=== PATIENT | female | born 1955 | race Caucasian/White ===

== ENCOUNTER 2020-04-30 18:04 | Inpatient (IN) | payer OTHER ==
[~2020-04-30] VITALS: Ht 162.6 cm; Wt 153.1 kg
[~2020-04-30 18:04] MED LIST: ALBU3IS INH; GABA300 PO; Hydrocodone-Ap1 EA23 PO; LISI20 PO; MONDOXYNE NL100 MG PO; MONT10T PO; Tenex1 MG PO
[2020-04-30 18:21] LABS: BASOPHILS ABSOLUTE AUTO 0.06 K/mm3 (0.00-0.23); BASOPHILS PERCENT AUTO 1 % (0-2); EOSINOPHILS ABSOLUTE AUTO 0.12 K/mm3 (0.00-0.68); EOSINOPHILS PERCENT AUTO 1 % (0-6); Hematocrit 40.5 % (33.0-51.0); Hemoglobin 10.3 g/dL (11.5-16.0); IMMATURE GRAN ABSOLUTE AUTO 0.21 K/mm3 (0.00-0.10); IMMATURE GRAN PERCENT AUTO 2 % (0-1); LYMPHOCYTES ABSOLUTE AUTO 1.72 K/mm3 (0.84-5.20); LYMPHOCYTES PERCENT AUTO 14 % (21-46); MONOCYTES ABSOLUTE AUTO 0.88 K/mm3 (0.16-1.47); MONOCYTES PERCENT AUTO 7 % (4-13); Mean Corpuscular HGB 24.7 pg (26.0-34.0); Mean Corpuscular HGB Conc 25.4 g/dL (31.5-36.5); Mean Corpuscular Volume 97 fL (80-100); Mean Platelet Volume 9.5 fL (9.1-12.4); NEUTROPHILS PERCENT AUTO 76 % (41-73); NRBC ABSOLUTE 0.44 K/mm3 (0.00-0.02); NRBC Auto 3.5 /100 WBC (0.0-0.2); Platelet Count 312 K/mm3 (150-400); RDW Coefficient Variation 19.9 % (11.7-14.2); Red Blood Cell Count 4.17 M/mm3 (3.80-5.20); White Blood Cell Count 12.59 K/mm3 (4.00-11.30)
[2020-04-30 18:27] LABS: PO2 Arterial 66.7 mmHg (80-100); pH Blood Arterial 7.24 (7.35-7.45)
[2020-04-30 18:46] LABS: Troponin I <0.015 ng/mL (0.000-0.040)
[2020-04-30] MEDS ORDERED: CENTRUM SILVER1 EAC2 PO (18:51)
[2020-04-30] MEDS ORDERED: DULCOLAX5 MG PO (18:51)
[2020-04-30] MEDS ORDERED: METO25ER PO (18:52)
[2020-04-30] MEDS ORDERED: DOXY100 PO (18:52)
[2020-04-30] MEDS ORDERED: CYCLOBENZAPRINE5 MG PO (18:52)
[2020-04-30 19:22] LABS: Alanine Aminotransfer (ALT/SGP 26 U/L (12-78); Albumin, Blood 3.1 g/dL (3.4-5.0); Albumin/Globulin Ratio 0.6 (0.8-1.8); Alk Phos 97 U/L (50-136); Anion Gap 3 mmol/L (6-16); Aspartate Aminotrans (AST/SGOT 17 U/L (12-37); Bilirubin, Total 0.4 mg/dL (0.1-1.0); Blood Urea Nitrogen 27 mg/dL (8-24); Bun/Creatinine Ratio 28.2 (12.0-20.0); CO2, Blood 36 mmol/L (21-32); Calcium, Blood 9.3 mg/dL (8.5-10.1); Chloride, Blood 101 mmol/L (98-108); Creatinine, Blood 0.96 mg/dL (0.40-1.00); Glomerular Filtration Rate >60 (60-); Glucose, Blood 137 mg/dL (70-99); Potassium, Blood 5.3 mmol/L (3.5-5.5); Sodium, Blood 140 mmol/L (136-145); Total Protein, Blood 8.1 g/dL (6.4-8.2)
[2020-04-30] MEDS ORDERED: Lovastatin10 MG PO (19:38)
[2020-04-30] MEDS ORDERED: Flovent 220 Ora12 GM INH (19:41)
[2020-04-30] MEDS ORDERED: [UNRECOGNIZED DRUG - OTHER] VAG (19:47)
[2020-04-30] MEDS ORDERED: ESTROGENS CONJUGATED VAG (19:47)
[2020-04-30] MEDS ORDERED: IPRAT-ALBUT 0.5-3 ML NEB (19:49)
[2020-04-30] MEDS ORDERED: CEPH500 PO (19:50)
[2020-04-30] MEDS ORDERED: LEVSOD112 PO (19:51)
[2020-04-30] MEDS ORDERED: GLIP5ER PO (19:52)
[2020-04-30 20:18] LABS: PO2 Arterial 61.3 mmHg (80-100)
[2020-04-30 20:20] LABS: PCO2 Arterial 92.6 mmHg (35-45); pH Blood Arterial 7.27 (7.35-7.45)
[2020-04-30] MEDS ORDERED: NYAMYC15 G1 TOP (21:06)
[2020-04-30 21:32] LABS: PCO2 Arterial 98.8 mmHg (35-45); PO2 Arterial 124 mmHg (80-100); pH Blood Arterial 7.24 (7.35-7.45)
[2020-04-30 22:43] LABS: PO2 Arterial 67.2 mmHg (80-100)
[2020-04-30 22:44] LABS: PCO2 Arterial 95.1 mmHg (35-45)
[2020-04-30 22:46] LABS: pH Blood Arterial 7.27 (7.35-7.45)
--- NOTE | 2020-05-01 | NUR ---
PT ARRIVAL PT ARRIVED FROM ED ON BIPAP. PT UNRESPONSIVE TO VERBAL, RESPONDS MINIMALLY TO PAINFUL. PT MOVED TO HOSP BED AND DID NOT TOLERATE MOVE WELL, PT IMMEDIATELY SAT UP TO ASSIST IN O2 SATS. OLD LINEN LEFT UNDERNEATH PT LIFT SHEET AT THIS TIME TO ALLOW PT RESP TO RECOVER BEFORE MOVING PT. PER RT PT HAS HAD DECREASED MENTAL, PER REPORT FROM ED NURSE PT WAS A0X3 IN ED AND ABLE TO ANSWER QUESTIONS. PT UNABLE TO ANSWER ANY QUESTIONS AT THIS TIME. ONLY OPENS EYES BREIFLY FOR PAINFUL STIMULI, UNABLE TO MAINTAIN CONSCIOUSNESS. WILL OBTAIN NEW ABG PER HOSPITALIST. PT REMAINS ON BIPAP.
[2020-05-01 00:41] LABS: PCO2 Arterial 87.5 mmHg (35-45); PO2 Arterial 72.2 mmHg (80-100)
--- NOTE | 2020-05-01 03:00 | NUR ---
PT UPDATE RN TO ROOM AFTER WOOL WASHER FEEDER REPORTED PT MOVING L ARM TOWARDS BIPAP MASK. PT OPENS EYES TO VERBAL AHND TRACKS THIS RN. PT ABLE TO SATE SHE IS AT HOSPITAL AND IS COLD. BLANKETS PULLED UP AND PT REQUESTED PILLOW. PT UPDATED THAT MASK WAS IMPROVING PT STATUS AND NEEDS TO REMAIN IN PLACE. PT REPORTED UNDERSTANDING AND WENT BACK TO SLEEP.
[2020-05-01 04:40] LABS: Alanine Aminotransfer (ALT/SGP 21 U/L (12-78); Albumin, Blood 2.9 g/dL (3.4-5.0); Albumin/Globulin Ratio 0.6 (0.8-1.8); Alk Phos 89 U/L (50-136); Anion Gap 1 mmol/L (6-16); Aspartate Aminotrans (AST/SGOT 22 U/L (12-37); Bilirubin, Total 0.4 mg/dL (0.1-1.0); Blood Urea Nitrogen 25 mg/dL (8-24); Bun/Creatinine Ratio 26.8 (12.0-20.0); CO2, Blood 39 mmol/L (21-32); Chloride, Blood 99 mmol/L (98-108); Creatinine, Blood 0.93 mg/dL (0.40-1.00); Globulin, Blood 4.8 g/dL (2.2-4.0); Glomerular Filtration Rate >60 (60-); Glucose, Blood 86 mg/dL (70-99); Potassium, Blood 5.1 mmol/L (3.5-5.5); Sodium, Blood 139 mmol/L (136-145); Total Protein, Blood 7.7 g/dL (6.4-8.2); Troponin I <0.015 ng/mL (0.000-0.040)
[2020-05-01 05:23] LABS: PO2 Arterial 70.8 mmHg (80-100); pH Blood Arterial 7.33 (7.35-7.45)
[2020-05-01 05:24] LABS: PCO2 Arterial 82.8 mmHg (35-45)
--- NOTE | 2020-05-01 05:52 | NUR ---
SHIFT SUMMARY PT SITTING UPRIGHT IN BED W/ BIPAP IN PLACE RESTING COMFORTABLY. PT HAS HAD SIGNIFICANT IMPROVEMENTS IN MENTAL STATUS DURING NIGHT. PT REMAINED ON BIPAP T/O NIGHT WITH CO2 LEVELS SLOWLY IMPROVING. PT CAN NOW AROUSE TO LOUYD VERBAL W/ SLIGHTLY SHAKE OF SHOULDER. PT ABLE TO OPEN EYES AND TRACK STAFF. PT EVEN SPOKE IN SHORT SENTANCES THROUGH MASK. BIPAP SETTING 22/10 W/ Fi02 OR 45%. SATS >92%. PT DENIED ANY PAIN. DENIED OTHER NEEDS. PT STILL NOT ABLE TO REMAIN AWAKE LONG ENOUGH TO SAFELY TAKE PO MEDS. CALL [facility] IS IN [facility].
--- NOTE | 2020-05-01 08:43 | NUR ---
PT IS NPO,PT DOES WAKE TO VERBAL STIMULI BUT DOES REMAIN AWAKE FOR LONG, WILL HOLD ORAL MEDICATIONS R/T NPO STATUS AND AMS
--- NOTE | 2020-05-01 10:07 | NUR ---
DR LÓPEZ CALLED AND UPDATED THAT PT'S PUPILS ARE NOT EQUAL, BUT ARE REACTIVE, AND THAT PT ALSO HAS NOTD GARBLED SPEECH THAT PER SPOUSE THIS IS NOT HER NORMAL BASELINE.
--- NOTE | 2020-05-01 10:40 | NUR ---
PT IS NOW OFF OF BIPAP, PT ANSWERING QUESTIONS, PUPILS ARE NEARLY EQUAL, DR DREW AT BEDSIDE. Q6 CHEMBG WAS PERFORMED NOTED TO BE 66, OJ WAS GIVEN PT OTLERATED WELL. WILL REASSESS IF PT IS ABLE TO SWALLOW HER AM MEDICATIONS
--- NOTE | 2020-05-01 15:26 | NUR ---
Initial palliative care consult: Sandra is a 64 year old with a history of morbid obesity, chronic hypoxemic respiratory failure, restrictive lung disease, HTN, hypothyroidism, CVA, DM. She was admitted yesterday evening with AMS changes and SOB. Attempted to visit with Sandra in her room today. She is sleeping soundly with the BIPAP in place. She did not awaken to voice or touch. Did not attempt a sternal rub to wake her as nursing reports she has been awake off and on during the shift and she converses with nursing when she is awake. Spoke with nursing and rec'd an update. Phone call placed to Carlos, pt's . Carlos states that Sandra lives at home with him. At baseline she is bed and wheelchair bound. They have wc, shower chair, elly lift in their home. Sandra has caregivers 7 days a week for 4 hours in the mornings and 3 hours in the evenings to assist with her care. Carlos reports that he feels that they have all the resources they need at home to be able to care for Sandra when she is ready for discharge. Carlos states that Sandra sleeps in a chair and has the TV on at night to help her sleep. He reports that he does some cooking and manages her medications. She is able to feed herself with some set up assistance. She is dependent on all other ADLs. She is unable to bear any weight on her R leg and uses the elly lift for transfers. Carlos reports that about two weeks ago he noticed "Warts on her legs started popping and leaking water." Since then she has become more lethargic and SOB. Updated Carlos on her current condition. He reports that baseline she is becoming more and more forgetful. Discussed that this mortgage underwriter was able to obtain a copy of pt's POLST from [facility]. Discussed the POLST with DNR, limited interventions and Carlos states that this is correct. They decided this course of treatment several years ago (POLST dated 2016) and that Sandra has never expressed a desire to change it. Carlos inquired about visiting hours. Explained current visitor restrictions and times. Carlos plans to come visit Sandra tomorrow morning. Spoke with Dr. Chi and rec'd a verbal telephone order to change pt's code status to DNR. Updated nursing re: change in code status order. PC will continue to follow for symptom management and advanced care planning as needed. Hand carried a copy of pt's POLST form from 2017 to medical records for input into the EMR system. AD is already in the EMR. Copies of AD and POLST placed in pt's chart cubby.
--- NOTE | 2020-05-01 16:24 | NUR ---
SHIFT NOTE CALL PLACED TO DR LÓPEZ FOR SPEECH THERAPY EVALUATION PT HAS NOT BEEN ABLE TO STAY AWAKE TO FOLLOW COMMANDS FOR BESIDE SWALLOW STUDY, PT'S RECENT GLUCOSE READING WERE REVIEWED WITH DR LÓPEZ AND TELEPHONE ORDER TO ADMINISTER ORANGE JUICE PO NEEDED TO MAINTAIN BLOOD SUGAR. PT AWAKENS INTERMITTENTLY TO PAINFUL OR VERBAL STIMULI. PT HAS BEEN BETWEEN O2 AND BIPAP. CHEMBG HAVE BEEN LOW T/O THE DAY WHICH WERE ADDRESSED WITH MD. THE BLISTERING PATTERN NOTED TO POSTERIOR RT KNEE WAS ALSO ADDRESSED WITH MD THIS AM. VSS T/O THE SHIFT. PT AWAKENS EASILY BUT DOES NOT STAY AWAKE LONG, OR ABLE TO FOLLOW COMMANDS FOR A LONG PERIOD OF TIME. RT SIDED WEAKNESS NOTED, WHICH S/O STS IS HER BASELINE FROM CVA IN 2011, GOOD STRENGTH TO LT ARM AND LEG. PUPILS ARE NOT EQUAL, MD IS ALSO AWARE OF THIS FINDING, S/O STS THAT PUPILS ARE NORMALLY EQUAL.
--- NOTE | 2020-05-01 16:27 | NUR ---
Echocardiogram completed.
[2020-05-02 04:16] LABS: BASOPHILS ABSOLUTE AUTO 0.05 K/mm3 (0.00-0.23); BASOPHILS PERCENT AUTO 1 % (0-2); EOSINOPHILS ABSOLUTE AUTO 0.26 K/mm3 (0.00-0.68); EOSINOPHILS PERCENT AUTO 3 % (0-6); Hematocrit 33.5 % (33.0-51.0); Hemoglobin 8.9 g/dL (11.5-16.0); IMMATURE GRAN ABSOLUTE AUTO 0.07 K/mm3 (0.00-0.10); IMMATURE GRAN PERCENT AUTO 1 % (0-1); LYMPHOCYTES ABSOLUTE AUTO 1.56 K/mm3 (0.84-5.20); LYMPHOCYTES PERCENT AUTO 16 % (21-46); MONOCYTES ABSOLUTE AUTO 0.75 K/mm3 (0.16-1.47); MONOCYTES PERCENT AUTO 8 % (4-13); Mean Corpuscular HGB 24.9 pg (26.0-34.0); Mean Corpuscular HGB Conc 26.6 g/dL (31.5-36.5); Mean Corpuscular Volume 94 fL (80-100); Mean Platelet Volume 9.5 fL (9.1-12.4); NEUTROPHILS ABSOLUTE AUTO 7.13 K/mm3 (1.96-9.15); NEUTROPHILS PERCENT AUTO 73 % (41-73); NRBC ABSOLUTE 0.08 K/mm3 (0.00-0.02); NRBC Auto 0.8 /100 WBC (0.0-0.2); Platelet Count 249 K/mm3 (150-400); RDW Coefficient Variation 19.7 % (11.7-14.2); RDW Standard Deviation 66.8 fL (35.1-46.3); Red Blood Cell Count 3.57 M/mm3 (3.80-5.20); White Blood Cell Count 9.82 K/mm3 (4.00-11.30)
[2020-05-02 04:33] LABS: Anion Gap 0 mmol/L (6-16); Blood Urea Nitrogen 23 mg/dL (8-24); Bun/Creatinine Ratio 24.4 (12.0-20.0); CO2, Blood 45 mmol/L (21-32); Calcium, Blood 8.7 mg/dL (8.5-10.1); Chloride, Blood 94 mmol/L (98-108); Creatinine, Blood 0.94 mg/dL (0.40-1.00); Glomerular Filtration Rate >60 (60-); Glucose, Blood 88 mg/dL (70-99); Potassium, Blood 4.4 mmol/L (3.5-5.5); Sodium, Blood 139 mmol/L (136-145)
[2020-05-02 05:42] LABS: PO2 Arterial 91.9 mmHg (80-100); pH Blood Arterial 7.41 (7.35-7.45)
[2020-05-02 05:43] LABS: PCO2 Arterial 77.4 mmHg (35-45)
--- NOTE | 2020-05-02 05:43 | NUR ---
SHIFT SUMMARY PT SLEEPING IN ROOM COMFORATBLY AT THIS TIME. NO ACUTE CHANGES IN STATUS T/O NIGHT PT WAS ABLE TO ATTEMPT BEDSIDE SWALLOW EVAL DUE TO DRASTIC INCREASE IN MENTATION AND ALERTNESS AT START OF SHIFT. PT TOLERATED ALL PO INTAKE WELL AND HAD NO DIFFICULTIES SWALLOWING. PT MADE ADA DIET AT THIS TIME AND CBG CHANGED TO ACHS. PT WORE BIPAP T/O NIGHT TOLERATED WELL. SATS >90% T/O NIGHT DENIED ANY CP OR SOB. BAILON IN PLACE DRAINING ORANGE TINT URINE. DENIED OTHER NEEDS. CALL LIGHT IN REACH.
--- NOTE | 2020-05-02 08:46 | NUR ---
Alerted by PCT that IV dressing left hand was not intact. Old dressing removed and IV site assessed, found to be WNL. Site was cleansed with chlorihexidine, and new sterile dressing was placed. Pt denies any discomfort when IV was flushed with 10 NS.
--- NOTE | 2020-05-02 16:13 | NUR ---
SHIFT NOTE PT HAS BEEN A/O X3 T/O THE DAY, LAUGHS AND JOKES WITH STAFF. PT HAS BEEN OFF AND ON BIPAP T/O THE DAY. TOLERATES HIGH FLOW O2 WELL. PT TOLERATES PO MEDS W/O DIFF. PT HAS ATE WELL T/O THE DAY WITH GOOD APPETITE. NO CHANGES FROM THE PREVIOUS SHIFT.
[2020-05-03 04:43] LABS: Anion Gap 2 mmol/L (6-16); Blood Urea Nitrogen 17 mg/dL (8-24); Bun/Creatinine Ratio 20.3 (12.0-20.0); CO2, Blood 41 mmol/L (21-32); Calcium, Blood 8.8 mg/dL (8.5-10.1); Chloride, Blood 91 mmol/L (98-108); Creatinine, Blood 0.84 mg/dL (0.40-1.00); Glomerular Filtration Rate >60 (60-); Glucose, Blood 100 mg/dL (70-99); Potassium, Blood 4.2 mmol/L (3.5-5.5); Sodium, Blood 134 mmol/L (136-145)
--- NOTE | 2020-05-03 05:28 | NUR ---
SHIFT SUMMARY PT SLEEPING IN ROOM COMFORTABLY AT THIS TIME. NO ACUTE CHANGES IN STATUS T.O NIGHT. PT CONTINUES TO IMPROVE IN STATUS OVER LAST 3 NIGHTS WITH THIS RN IN CARE. PT AOX4 AND ABLE TO EAT MEALS W/O ASSIST. PT WORE BIPAP MOST OF NIGHT AND TOLERATED WELL. PT WAS ABLE TO TOLERATE FULL BED BATH AND LINEN CHANGE W/O DESATURATING BELOW 90% ON 5L NC. PT ATTEMPTED BM, N SUCCESS PT REPORTS CANNOT GO ON BEDPAN. PT HAS NOT BEEN OUT OF BED YET AND REPORTS BEING ABLE TO SUPPOR WEIGHT ON R LEG VERY BREIFLY. PT AGREED TO WAIT UNTIL WORKING W/ PT TO TRY STANDING. CATH CARE PROVIDED, SOME BLOOD NOTED, PT REPOTS CATH GOT "SNAGGED" ONCE OR TWICE. BAILON PATENT AND DRAINING. DENIED OTHER NEEDS. CALL LIGHT IN REACH.
--- NOTE | 2020-05-04 02:02 | NUR ---
ASSUNED CARE AT 1900. COMPLETE BED BATH AND SKIN CHECK. ENC TO TURN COUGH AND DEEP BREATHE, UNABLE TO ASSIST IN TURNING AT ALL. HOB SEMI FOWLERS FOR COMFORTABLE BREATHING. NC AT 4L . WHEN PLACAED ON BIPAP 40 % FIO2 . DENIES PAIN AND VERY RESISTANT TO TURN FROM SIDE TO SIDE . " I HAVE BEEN SLEEPING ON MY BACK FOR 14 YRS ". NO SKIN BREAK DOWN EXCEPT RT OF NECK . PLACED CALIZIME CREAM AND AND GAUZE FOR DRYING. NO DESIRE FOR HS SNACK. ENC SIPS OF FLUIDS, RT EXTREMITIES FLACCID PER HX CVA
[2020-05-04 04:29] LABS: Anion Gap 3 mmol/L (6-16); Blood Urea Nitrogen 20 mg/dL (8-24); Bun/Creatinine Ratio 20.3 (12.0-20.0); CO2, Blood 40 mmol/L (21-32); Calcium, Blood 9.2 mg/dL (8.5-10.1); Chloride, Blood 93 mmol/L (98-108); Creatinine, Blood 0.98 mg/dL (0.40-1.00); Free Thyroxine 1.09 ng/dL (0.70-1.60); Glomerular Filtration Rate >60 (60-); Glucose, Blood 95 mg/dL (70-99); Sodium, Blood 136 mmol/L (136-145)
--- NOTE | 2020-05-04 05:12 | NUR ---
WORE BIPAP FOR 9 HRS TONIGHT . 40 % FIO2. ATTEMPT TO WEAN HIGH FLOW O2 TO 6L . WNL SAT WHEN AWAKE OR ASLEEP. ENC TO GET BACK ON BIPAP WHEN FALLS OFF TO SLEEP. AND AGREES. BP LOW 67 MAP , USED LT ANKLE. LEFT BAILON IN , 600 ML URINE TONIGHT.REFUSED/TURN AND A FEW TIMES STAFF INSISTED ON REPOSITIONING.
--- NOTE | 2020-05-04 18:00 | NUR ---
SUMMARY NO ACUTE CHANGES NOTED THROUGH THE DAY. PT IS A&OX4, VSS, BP WAS LOW THIS AM BUT STARTING TO RISE, PT REMAINED ASYMPTOMATIC, CPAP ENC WHILE SLEEPING, Q2 TURNS ENC WELL, BAILON CATH REMOVED THIS EVENING, ATTENDS PLACED PER PT'S WISHES, SHE STATES SHE IS INCONTINENT AT HOME. WCTM, CALL LIGHT IN REACH
--- NOTE | 2020-05-05 05:10 | NUR ---
SHIFT SUMMARY: PATIENT USED BIPAP WHILE SLEEPING, VSS, NO ACUTE ISSUES THIS SHIFT. BED LOW AND LOCKED, CALL LIGHT WITHIN REACH.
--- NOTE | 2020-05-05 09:44 | NUR ---
ASSUME CARE; PT ON BIPAP THIS AM SWITCHED TO NASAL CANNULA 6L OF O2, SATS ABOVE 95%, BP SYSTOLIC 120'S, HR 80'S, AFEBRILE. NO COMPLAINS THIS MORNING, PT WAS REPOSITIONED IN BED RIGHT SIDE PARALYSIS RIGHT ARM ELEVATED ON PILLOWS. DENIES ANY PAIN, ATE BREAKFAST AND TOOK MEDS WITH NO ISSUES. PT INCONTINENT OF URINE WAS FOUND SOAKING WET THIS MORNING PT WAS GIVEN A BED BATH. DR WILDER WENT AND SEE PT THIS MORNING PT FOR POSSIBLE DISCHARGE TODAY PLAN. WILL MONITOR
--- NOTE | 2020-05-05 16:59 | NUR ---
PT SUMMARY/TRANSFER OF CARE: PT TRANSFERRED TP RM [phone] REPORT GIVEN TO STEFANI CALHOUN. PT'S VITALS BEEN STABLE FOR THE SHIFT, NO OTHER ISSUES COMPLAINTS REPORTED. PT PLAN TO DISCHARGE TOMORROW HOME O2 EVAL PASSED. PT CONTINUES ON 5L OF O2 VIA NASAL CANNULA BIPAP PRN. PT HAD A LARGE BM TODAY. ACCOMPANIED AND TRANSFERRED VIA HOSPITAL BED.
--- NOTE | 2020-05-05 18:55 | NUR ---
PT WAS TRANSFERRED FROM PCU THIS SADA. SHE IS A/O X 4 AND WAS ORIENTED TO HER NEW ROOM AND NURSING STAFF. PT HAS NO COMPLAINTS AND IS ABLE TO MAKE HER NEEDS KNOWN. SHE HAS HER CALL LIGHT IN REACH. REPORT GIVEN TO ONCOMING NURSE.
--- NOTE | 2020-05-06 07:35 | NUR ---
SHIFT SUMMARY PT A/O X4, USING CALL LIGHT APPR. PT HAS BEEN REPOSITIONED FREQUENTLY DURING THE SHIFT. ATTENS IN PLACE FOR INCONTINENCE. WHILE AWAKE PT HAS BEEN USING O2 NC WITH HUMIDIFIER AT 5-6L. DURING THE NIGHT PT USED BIPAP. BIOX AT BEDSIDE. PT O2 DID TEND TO DROP WHILE ASLEEP; O2 TURNED UP TO 8L WITH BIPAP TO MAINTAIN O2 SAT ABOVE 90-92% WHILE ASLEEP. PT RESTING AT THIS TIME.
--- NOTE | 2020-05-06 13:08 | NUR ---
Pt. is in bed and reports to be doing much better encouraged pt. and offered prayers
[2020-05-06] MEDS ORDERED: EUTHYROX125 MCG PO (15:30)
[2020-05-06] MEDS ORDERED: LISI5 PO (15:30)
[2020-05-06] MEDS ORDERED: TORSE20 PO (15:31)
--- NOTE | 2020-05-06 17:41 | NUR ---
PT DISCHARGED FROM THE UNIT. IV REMOVED. DISCHARGE INSTRUCTIONS REVIEWED. PT WILL HAVE FOLLOW UP WITH PULMONOLOGY TOMORROW TO EVALUATE HER FOR CPAP AT NIGHT. TRANSPORTATION ARRNGED FOR THIS. SHE WAS PICKED UP BY [facility] TO GO HOME. FOLLOW UP APT SCHEDULED WITH PRIMARY CARE PROVIDER.
--- NOTE | 2020-05-06 17:48 | NUR ---
Initial spiritual care note: Sandra smiled easily and welcomed prayer. She feels loved and supported bu her and reports a strong roslyn in a God that loves her. She is being discharged soon. Prayer for continued healing well received.
== END 2020-05-06 17:16 | disposition home or self-care (01) | DRG 291 ==
LOC: ER 18:04 → ERHOLD 20:20 → MEDS 20:20 → PCU 22:45 → MEDS 05-05 16:57 → ENPENDDIS 05-06 12:26 → MEDS 05-06 17:16
PROVIDERS: Emergency Medicine; Family Medicine; Hospitalist; Internal Medicine; ADMIT Internal Medicine
DX: I11.0 Hypertensive heart disease with heart failure (principal); I50.31 Acute diastolic (congestive) heart failure; J96.21 Acute and chronic respiratory failure with hypoxia; J96.22 Acute and chronic respiratory failure with hypercapnia; E66.2 Morbid (severe) obesity with alveolar hypoventilation; Z68.44 Body mass index [BMI] 60.0-69.9, adult; Z51.5 Encounter for palliative care; Z20.828 Contact with and (suspected) exposure to other viral communicable diseases; K59.00 Constipation, unspecified; Z86.73 Personal history of transient ischemic attack (TIA), and cerebral infarction without residual deficits; E03.9 Hypothyroidism, unspecified; I27.20 Pulmonary hypertension, unspecified; Z87.440 Personal history of urinary (tract) infections; Z66 Do not resuscitate; Z74.01 Bed confinement status; Z87.891 Personal history of nicotine dependence; Z99.3 Dependence on wheelchair; Z91.19 Patient's noncompliance with other medical treatment and regimen; E11.40 Type 2 diabetes mellitus with diabetic neuropathy, unspecified; J44.9 Chronic obstructive pulmonary disease, unspecified; Z99.81 Dependence on supplemental oxygen; G47.33 Obstructive sleep apnea (adult) (pediatric)
CPT/HCPCS: 36415; 36600; 51702; 71045; 80048; 80053; 82803; 82947; 83880; 84439; 84443; 84484; 85025; 93005; 93010; 93306; 94640; 94660; 94761; 94762; 96374-59; 99285-25; A9270-GY; J1650; J1940; U0002

== ENCOUNTER → 2021-06-28 | Outpatient (CLI) | payer OTHER ==
[~2021-06-28] MED LIST changes: +CENTRUM SILVER1 EAC2 PO; +CEPH500 PO; +CYCLOBENZAPRINE5 MG PO; +DOXY100 PO; +DULCOLAX5 MG PO; +ESTROGENS CONJUGATED VAG; +EUTHYROX125 MCG PO; +Flovent 220 Ora12 GM INH; +GLIP5ER PO; +IPRAT-ALBUT 0.5-3 ML NEB; +LEVSOD112 PO; +LISI5 PO; +Lovastatin10 MG PO; +METO25ER PO; +NYAMYC15 G1 TOP; +TORSE20 PO; +[UNRECOGNIZED DRUG - OTHER] VAG
[2021-06-28 09:48] LABS: Source, Urine Clean Catch
[2021-06-28 12:08] LABS: Appearance, Urine Hazy (Clear); Blood, Urine 4+ (Neg); Color, Urine Yellow (P-Yellow); Glucose Qualitative, Urine Neg (Neg); Ketones, Urine Neg (Neg); Leukocyte Esterase, Urine 3+ (Neg); Nitrite, Urine Pos (Neg); Protein, Urine 2+ (Neg); Urobilinogen, Urine 2+ (Normal)
[2021-06-28 13:35] LABS: Bilirubin, Urine 2+ (Neg)
[2021-06-28 13:36] LABS: Bacteria Many /hpf; Squamous Epithelial Cells Mod /hpf (Few)
== END | disposition home or self-care (01) ==
LOC: LAB SHORT 09:45
PROVIDERS: Student in an Organized Health Care Education/Training Program
DX: R31.0 Gross hematuria (principal)
CPT/HCPCS: 81001; 87077; 87086; 87186

== ENCOUNTER → 2021-11-24 | Outpatient (CLI) | payer OTHER | END | disposition home or self-care (01) | LOC: LAB SHORT 08:34 | DX: N39.0 Urinary tract infection, site not specified (principal) | CPT/HCPCS: 87077; 87086; 87186 ==

== ENCOUNTER 2022-07-10 16:45 | Inpatient (IN) | payer OTHER ==
[~2022-07-10] VITALS: Ht 170.2 cm; Wt 161.3 kg
[2022-07-10 17:10] LABS: Base Excess Venous -5.8 mmol/L; Bicarbonate Venous 19.3 mmol/L (24.0-30.0); PCO2 Venous 58.6 mmHg (38-42)
[2022-07-10 17:11] LABS: pH Blood Venous 7.19 (7.34-7.37)
[2022-07-10 17:13] LABS: BASOPHILS ABSOLUTE AUTO 0.09 K/mm3 (0.00-0.23); BASOPHILS PERCENT AUTO 1 % (0-2); EOSINOPHILS PERCENT AUTO 2 % (0-6); Hematocrit 37.8 % (33.0-51.0); Hemoglobin 11.4 g/dL (11.5-16.0); IMMATURE GRAN ABSOLUTE AUTO 0.46 K/mm3 (0.00-0.10); IMMATURE GRAN PERCENT AUTO 3 % (0-1); LYMPHOCYTES ABSOLUTE AUTO 2.86 K/mm3 (0.84-5.20); LYMPHOCYTES PERCENT AUTO 17 % (21-46); MONOCYTES ABSOLUTE AUTO 1.56 K/mm3 (0.16-1.47); MONOCYTES PERCENT AUTO 9 % (4-13); Mean Corpuscular HGB 31.6 pg (26.0-34.0); Mean Corpuscular HGB Conc 30.2 g/dL (31.5-36.5); Mean Corpuscular Volume 105 fL (80-100); Mean Platelet Volume 9.6 fL (9.1-12.4); NEUTROPHILS ABSOLUTE AUTO 11.25 K/mm3 (1.96-9.15); NEUTROPHILS PERCENT AUTO 68 % (41-73); NRBC ABSOLUTE 0.05 K/mm3 (0.00-0.02); NRBC Auto 0.3 /100 WBC (0.0-0.2); Platelet Count 341 K/mm3 (150-400); RDW Coefficient Variation 15.3 % (11.7-14.2); RDW Standard Deviation 60.1 fL (35.1-46.3); Red Blood Cell Count 3.61 M/mm3 (3.80-5.20); White Blood Cell Count 16.52 K/mm3 (4.00-11.30)
[2022-07-10 17:36] LABS: Albumin, Blood 2.7 g/dL (3.4-5.0); Albumin/Globulin Ratio 0.6 (0.8-1.8); Bilirubin, Total 0.4 mg/dL (0.1-1.0); Bun/Creatinine Ratio 15.4 (12.0-20.0); Calcium, Blood 8.9 mg/dL (8.5-10.1); Creatinine, Blood 1.3 mg/dL (0.40-1.00); Globulin, Blood 4.8 g/dL (2.2-4.0); Potassium, Blood 4.9 mmol/L (3.5-5.5); Thyroid Stimulating Hormone 4.84 uIU/mL (0.360-4.800); Total Protein, Blood 7.5 g/dL (6.4-8.2)
[2022-07-10 19:16] LABS: Source, Urine Straight Cath
[2022-07-10 19:19] LABS: Appearance, Urine Cloudy (Clear); Bilirubin, Urine Neg (Neg); Blood, Urine 4+ (Neg); Color, Urine Yellow (P-Yellow); Glucose Qualitative, Urine Neg (Neg); Ketones, Urine Neg (Neg); Leukocyte Esterase, Urine 3+ (Neg); Nitrite, Urine Pos (Neg); Protein, Urine 3+ (Neg); Specific Gravity, Urine 1.015 (1.003-1.022); Urobilinogen, Urine NORM (Normal)
[2022-07-10 19:29] LABS: White Blood Cells, Urine TNTC /hpf (0-5)
[2022-07-10 19:31] LABS: Bacteria Many /hpf; Squamous Epithelial Cells Mod /hpf (Few); Transitional Epithelial Cells Few /hpf (0-Rare)
[2022-07-10 19:59] LABS: Influenza A, PCR NEGATIVE (NEGATIVE); Influenza B, PCR NEGATIVE (NEGATIVE); Resp Syncytial Virus, PCR NEGATIVE (NEGATIVE); SARS-Cov-2 (COVID-19) PCR, MMC NEGATIVE (NEGATIVE)
[2022-07-10 20:28] LABS: Base Excess Venous 3.3 mmol/L; Bicarbonate Venous 26.8 mmol/L (24.0-30.0); PCO2 Venous 47.5 mmHg (38-42); pH Blood Venous 7.39 (7.34-7.37)
--- NOTE | 2022-07-10 22:00 | NUR ---
RECEIVED REPORT FROM EZIO CALHOUN IN ED. PT ARRIVED TO ROOM AROUND 2129. PT WAS NOT RESPONSIVE/FOLLOWING ANY COMMANDS. PUPILS WERE REACTIVE BUT VERY SLUGGISH. PT RESPONDS TO PAINFUL STIMULI WITH ABNORMAL EXTENSION TO BUE AND ABNORMAL FLEXION TO BLE. PT SEEMS TO BE SEIZING OR HAVING MYOCLONUS MOVEMENT. KEPPRA INFUSING, PRN ATIVAN GIVEN PRIOR TO ARRIVAL. OTHERWISE, VS CURRENTLY STABLE. IV FLUIDS INFUSING, BAILON INTACT AND DRAINING. WILL CONTINUE TO MONITOR.
--- NOTE | 2022-07-10 22:22 | NUR ---
SPOKE WITH MOMO CRANDALL [employer]UAL[employer] INSURANCE CLAIM ADJUSTER, REGARDING CONTINUED SEIZURE TYPE ACTIVITY. SEE NEW ORDERS FOR INCREASED DOSE OF KEPPRA AND ATIVAN. RT CALLED FOR CPAP TO BE PLACED.
[2022-07-11 04:10] LABS: Base Excess Venous 3.8 mmol/L; Bicarbonate Venous 27.5 mmol/L (24.0-30.0); PCO2 Venous 40.7 mmHg (38-42); pH Blood Venous 7.44 (7.34-7.37)
[2022-07-11 04:13] LABS: BASOPHILS ABSOLUTE AUTO 0.05 K/mm3 (0.00-0.23); BASOPHILS PERCENT AUTO 0 % (0-2); EOSINOPHILS PERCENT AUTO 0 % (0-6); Hematocrit 34.4 % (33.0-51.0); IMMATURE GRAN ABSOLUTE AUTO 0.15 K/mm3 (0.00-0.10); IMMATURE GRAN PERCENT AUTO 1 % (0-1); LYMPHOCYTES ABSOLUTE AUTO 1.09 K/mm3 (0.84-5.20); LYMPHOCYTES PERCENT AUTO 5 % (21-46); MONOCYTES ABSOLUTE AUTO 1.57 K/mm3 (0.16-1.47); MONOCYTES PERCENT AUTO 7 % (4-13); Mean Corpuscular HGB 31.7 pg (26.0-34.0); Mean Platelet Volume 9.4 fL (9.1-12.4); NEUTROPHILS ABSOLUTE AUTO 19.17 K/mm3 (1.96-9.15); NEUTROPHILS PERCENT AUTO 87 % (41-73); Platelet Count 297 K/mm3 (150-400); RDW Coefficient Variation 15.3 % (11.7-14.2); RDW Standard Deviation 55.5 fL (35.1-46.3); Red Blood Cell Count 3.47 M/mm3 (3.80-5.20); White Blood Cell Count 22.03 K/mm3 (4.00-11.30)
[2022-07-11 04:19] LABS: Mean Corpuscular Volume 99 fL (80-100)
[2022-07-11 04:33] LABS: Albumin, Blood 2.6 g/dL (3.4-5.0); Albumin/Globulin Ratio 0.6 (0.8-1.8); Bilirubin, Total 0.5 mg/dL (0.1-1.0); Bun/Creatinine Ratio 21.8 (12.0-20.0); Calcium, Blood 8.7 mg/dL (8.5-10.1); Creatinine, Blood 1.24 mg/dL (0.40-1.00); Globulin, Blood 4.7 g/dL (2.2-4.0); Magnesium, Blood 2.3 mg/dL (1.6-2.4); Potassium, Blood 4.6 mmol/L (3.5-5.5); Total Protein, Blood 7.3 g/dL (6.4-8.2)
--- NOTE | 2022-07-11 06:23 | NUR ---
Shift summary: Pt has not followed any commands overnight. She appears to be having myoclonus jerks more consistently despite PRN ativan being given. Her right foot is abnormally flexing and her left foot is flaccid. Her BUE are abnormally extending. Her pupils are very sluggish. She has been SR all night with HR 80-90s. BP has reamined stable and normotensive. Cap refill is >3 seconds and her fingertips are cool. All pulses are faint. Pt wore CPAP all night with O2 sats in the mid-90s. Clear/diminished lung soudns. Cash intact and draining jasiel urine with sediment. No BM overnight.
--- NOTE | 2022-07-11 08:46 | NUR ---
Assumed care at 0700, report received from nightshift RN. Pt in bed, on CPAP. Pt unresponsive to any stimuli, some reflexive jerking of R/arm and head noted. VS stable at time of report. Plan to connect with family and discuss further care. Continue to monitor.
--- NOTE | 2022-07-11 17:36 | NUR ---
CARE CONSULT WITH RN, REPORTS PT IS STILL HAVING JERING MOVEMENTS, TRIED ATIVAN AND FENTANYL TO HELP RELIEVE MOVEMENTS WITHOUT RESULTS. PT HR IS IRREGULAR AND SLIGHTLY ELEVTED AT 106, RESP RATE ON BIPAP IS 24-26 AND BP IS WNL. TC TO DAUGHTER, ROBIN ENRIQUE WITH QUESTIONS ABOUT HER MOMS CURRENT POLST AND WHAT CC VS LIMITED TREAMENT MEANS. ALSO DISCUSSED THAT THE PATIENT ROYER HAVE EEG AND HEAD CT DONE AND THEY CAN WAIT UNTIL THEN TO MAKE DECISIONS ON HOW TO PROCEED TOWARDS HOSPICE/CC IF APPROP. PALLIATIVE CARE WILL CONTINUE TO FOLLOW AND OFFER SUPPORT.
--- NOTE | 2022-07-11 19:02 | NUR ---
Shift summary. Pt in bed, unresponsive to any stimuli. On oxymizer at 10 L/min. Pt family in today, after speaking with Dr. Hill, they requested an EEG. EEG staff in around 1630, EEG completed. Family updated on pt status at end of shift, daughter, Gabi, requested she be contacted with results of EEG as soon as they are available. Pt still exhibiting some reflexive jerking of head, shoulders and R/side, no change with medication administration. VS remained stable during shift, see assessment for further details. Will continue to monitor and report off to oncoming RN.
[2022-07-12 03:44] LABS: Hematocrit 34.3 % (33.0-51.0); Hemoglobin 10.6 g/dL (11.5-16.0); Mean Corpuscular HGB 31.4 pg (26.0-34.0); Mean Corpuscular HGB Conc 30.9 g/dL (31.5-36.5); Mean Corpuscular Volume 102 fL (80-100); Mean Platelet Volume 9.4 fL (9.1-12.4); Platelet Count 293 K/mm3 (150-400); RDW Coefficient Variation 15.5 % (11.7-14.2); RDW Standard Deviation 58.3 fL (35.1-46.3); Red Blood Cell Count 3.38 M/mm3 (3.80-5.20); White Blood Cell Count 19.91 K/mm3 (4.00-11.30)
[2022-07-12 03:45] LABS: Base Excess Venous 2.2 mmol/L; Bicarbonate Venous 25.7 mmol/L (24.0-30.0); PCO2 Venous 53.6 mmHg (38-42); pH Blood Venous 7.33 (7.34-7.37)
[2022-07-12 04:04] LABS: Albumin, Blood 2.3 g/dL (3.4-5.0); Anion Gap 5 mmol/L (6-16); Blood Urea Nitrogen 21 mg/dL (8-24); Bun/Creatinine Ratio 20.6 (12.0-20.0); CO2, Blood 29 mmol/L (21-32); Calcium, Blood 8.2 mg/dL (8.5-10.1); Chloride, Blood 107 mmol/L (98-108); Creatinine, Blood 1.02 mg/dL (0.40-1.00); Glomerular Filtration Rate 60 (60-); Glucose, Blood 118 mg/dL (70-99); Magnesium, Blood 2.4 mg/dL (1.6-2.4); Phosphorus, Blood 2.4 mg/dL (2.5-4.9); Potassium, Blood 4.4 mmol/L (3.5-5.5); Sodium, Blood 141 mmol/L (136-145); Thyroxine (T4) 7.2 ug/dL (4.8-13.9); Triglycerides 103 mg/dL (30-160)
--- NOTE | 2022-07-12 06:16 | NUR ---
SHIFT SUMMARY: EEG RESULTS IN. PT ON 7L OXYMIZER THROUGHOUT NIGHT. HEART RATE INCREASED TO 130 SUSTAINING. PATIENT WAS BREATHING UP TO 50 TIMES A MINUTE. ATIVAN GIVEN AND PATIENT RESPONDED WELL. ELEVATED TEMPERATURE NOTED. STILL NO PURPOSEFUL NEUROLOGICAL RESPONSES NOTED.
--- NOTE | 2022-07-12 12:34 | NUR ---
DR LYNN/COMFORT CARE PT SPOUSE AND DAUGHTER AT BEDSIDE. DR LYNN AT BEDSIDE TO DISCUSS PT STATUS AND EEG RESULTS. PT FAMILY WOULD LIKE TO TRANSITION TOWARDS COMFORT CARE AFTER OTHER FAMILY GETS THE OPPORTUNITY TO VISIT. DR LYNN TO PUT IN COMFORT CARE ORDERS AND WILL INITIATE WHEN FAMILY IS READY.
--- NOTE | 2022-07-12 16:24 | NUR ---
Spiritual Care Visit. Pt. is non-responsive and on oxygen. Family (mostly siblings) are present and welcome my visit. Comfort Care has been ordered for the Pt. , but they are waiting for some more family to come before comfort care is administered. Facilitate a Life review, and establish rapport. Pts. siblings all display evidence of being engaged and supportive. Whitney over the the Pt. Siblings verbalize gratitude for the spiritual care visit.
--- NOTE | 2022-07-12 17:42 | NUR ---
Clarification with pt's Carlos regarding comfort care. He states he wants his to be comfortable, and states she appeared UN-comfortable to him when he left today. He stated, "Yes, please go ahead and give her whatever medicines you need to help her get comfortable". He states he is hard of hearing and "must have missed" any conversation about waiting to give medications until tomorrow. He also states he and his made a pact years ago they would never keep the other one alive with feeding tubes, breathing tubes or severe brain damage. He thanked me for the call, reports he will be back in the morning. States he will sleep well tonight knowing we are working to help her comfort level. Also requests eye drops be used to keep her eyes from drying out. I assured him she is in good hands, and bedside RN will medicate as needed.
--- NOTE | 2022-07-12 17:54 | NUR ---
SHIFT SUMMARY/COMFORT CARE PT WITHOUT ANY NEURO CHANGES THIS SHIFT. MULTIPLE FAMILY MEMBERS IN THIS AFTERNOON TO SEE PT. PT SPOUSE AND DAUGHTER CALLED AND STATED THEY WILL NOT BE IN THIS EVENING. MARÍA PALLIATIVE CARE RN CALLED PT SPOUSE, AND CONFIRMED THEY WISH TO PROCEED WITH COMFORT CARE MEASURES AT THIS TIME AND THEY WILL BE BACK ON TO SEE THE PT TOMORROW MORNING. IV FLUIDS DC'D. PT MED PER EMAR. WILL CONTINUE TO MONITOR AND REPORT OFF TO ONCOMING RN.
--- NOTE | 2022-07-12 19:00 | NUR ---
ASSUMED CARE ASSUMED CARE OF PATIENT. PT IS NOW COMFORT STATUS PER FAMILY. NO FAMILY AT BEDSIDE AT THIS TIME. MONITOR SHOWS ST, RATE 130s. RR 40. RA SATS 68%. GURGLING RESPIRATIONS NOTED- DID NOT CLEAR WITH DEEP SUCTIONING WITH YANKAUER. NO RESPONSE TO NOXIOUS STIMULI. BAILON REMAINS IN PLACE FOR COMFORT. WILL MEDICATE FOR COMFORT PER ORDERS.
--- NOTE | 2022-07-13 06:39 | NUR ---
PT AT 0630, PT WITHOUT PULSE OR RESPIRATION. MONITOR SHOWS ASYSTOLE. PRONOUNCED AT THAT TIME. ATTEMPTED TO CALL DAUGHTER, ROBIN, AT 0634 AND , ESSIE, AT 0635. NO ANSWER AND UNABLE TO LEAVE VOICE MESSAGE. WILL TRY AGAIN LATER.
--- NOTE | 2022-07-13 15:22 | NUR ---
Family notified at 0712 of patient passing. Final discharge called, services contacted. Pt transferred to [facility] at approximately 1500.
== END 2022-07-13 06:30 | DRG 208 ==
LOC: ER 16:45 → ICUW 20:04
PROVIDERS: Emergency Medicine; Internal Medicine; Nurse Practitioner Acute Care; ADMIT Family Medicine
PROC: 5A12012 Performance of Cardiac Output, Single, Manual (ICD-10-PCS; principal; 2022-07-10)
PROC: 5A1935Z Respiratory Ventilation, Less than 24 Consecutive Hours (ICD-10-PCS; 2022-07-10)
PROC: 5A09357 Assistance with Respiratory Ventilation, Less than 24 Consecutive Hours, Continuous Positive Airway Pressure (ICD-10-PCS; 2022-07-10)
DX: J96.21 Acute and chronic respiratory failure with hypoxia (principal); G92.8 Other toxic encephalopathy; G93.1 Anoxic brain damage, not elsewhere classified; N39.0 Urinary tract infection, site not specified; Z68.43 Body mass index [BMI] 50.0-59.9, adult; I69.351 Hemiplegia and hemiparesis following cerebral infarction affecting right dominant side; I46.9 Cardiac arrest, cause unspecified; J96.22 Acute and chronic respiratory failure with hypercapnia; Z51.5 Encounter for palliative care; Z66 Do not resuscitate; G47.33 Obstructive sleep apnea (adult) (pediatric); I10 Essential (primary) hypertension; E03.9 Hypothyroidism, unspecified; E11.42 Type 2 diabetes mellitus with diabetic polyneuropathy; J44.9 Chronic obstructive pulmonary disease, unspecified; G25.3 Myoclonus; E66.01 Morbid (severe) obesity due to excess calories; Z20.822 Contact with and (suspected) exposure to COVID-19; Z74.01 Bed confinement status; Z99.3 Dependence on wheelchair; Z79.899 Other long term (current) drug therapy; Z79.2 Long term (current) use of antibiotics; Z87.09 Personal history of other diseases of the respiratory system; Z87.440 Personal history of urinary (tract) infections; Z99.81 Dependence on supplemental oxygen; Z79.52 Long term (current) use of systemic steroids; Z79.811 Long term (current) use of aromatase inhibitors; Z91.199 Patient's noncompliance with other medical treatment and regimen due to unspecified reason
CPT/HCPCS: 0241U; 36415; 51702; 70450; 71045; 80053; 80069; 81001; 82803; 82947; 83605; 83735; 83880; 84145; 84436; 84443; 84478; 84484; 85025; 85027; 87040; 93005; 93010; 94002; 94640; 94660; 94664; 94762; 95819; 96361-59; 96365-59; 96375-59; 99291-25; A9270; J0456; J0696; J1650; J1953; J2060; J2270; J3010; J7030; J7050